=== PATIENT | male | born 1950 | race Caucasian/White ===

== ENCOUNTER 2017-01-22 23:43 | Inpatient (IN) | payer OTHER, BC ==
[~2017-01-22] VITALS: Ht 172.7 cm; Wt 98.2 kg
[~2017-01-22 23:43] MED LIST: NAPROSYN500 MG PO; NORCO 5/3251 TABLET PO; VALIUM2 MG PO
[2017-01-23 01:26] LABS: HEMATOCRIT 42.4 % (38.0-50.0); MCH 29.4 PG (29.0-34.0); MCHC 35.4 G/DL (30.0-36.0); MCV 83.1 FL (86-99); MEAN PLAT.VOLUME 10.5 uM^3 (9.0-12.4); PLATELET COUNT 211 K/uL (156-360); RBC DIS.WIDTH-CV 12.1 % (11.8-14.6); RBC DIS.WIDTH-SD 36.8 % (39-53); WHITE BLOOD COUNT 22.2 K/uL (4.1-10.2)
[2017-01-23 01:28] LABS: CHLORIDE 99 mEq/L (99-109); POTASSIUM 4.5 mEq/L (3.7-5.4); SODIUM 135 mEq/L (136-147)
[2017-01-23 01:30] LABS: GLUCOSE 251 mg/dL (70-99)
[2017-01-23 01:31] LABS: ANION GAP 13 MEQ/L (2-14)
[2017-01-23 01:34] LABS: GFR ESTIMATE (CALCULATED) > 59 mL/min/; UREA NITROGEN (BUN) 18 mg/dL (9-23)
[2017-01-23 01:40] LABS: TROP-I INTERPRETATION NEGATIVE; TROPONIN-I < 0.01 ng/mL (0.0-0.30)
[2017-01-23 02:18] LABS: ADD MIUA? YES; BILIRUBIN NEGATIVE; BLOOD NEGATIVE; COLOR YELLOW ((YELLOW)); GLUCOSE (STRIP) 150; KETONES 5; LEUKOCYTES LARGE; NITRITE NEGATIVE; PROTEIN (STRIP) 30; SPECIFIC GRAVITY 1.015 (1.000-1.030)
[2017-01-23 02:38] LABS: EPITHELIAL CELLS RARE /HPF; RED BLOOD CELLS RARE /HPF (0-5); WHITE BLOOD CELLS TNTC /HPF (0-5)
[2017-01-23 02:39] LABS: BACTERIA RARE /HPF; CASTS NONE SEEN /LPF; CRYSTALS NONE SEEN; MUCUS TRACE /LPF; UCUL ADDED? YES
[2017-01-23 02:40] LABS: TOTAL BILIRUBIN 2.2 mg/dL (0.0-1.0)
[2017-01-23 02:41] LABS: ALKALINE PHOSPHATASE 95 IU/L (3-129)
[2017-01-23 02:43] LABS: DIRECT BILIRUBIN 0.7 mg/dL (0.0-0.3)
[2017-01-23 02:44] LABS: LIPASE 24 U/L (1.0-51.0)
[2017-01-23 06:12] VITALS: BP 132/74
[2017-01-23 07:55] VITALS: BP 149/76
[2017-01-23] MEDS ORDERED: EXFORGE HCT 101 EAC2 PO (11:20)
[2017-01-23] MEDS ORDERED: METFORMIN HCL1000 MG PO (11:20)
[2017-01-23] MEDS ORDERED: LO-DOSE ASPIRIN81 M2 PO (11:20)
[2017-01-23] MEDS ORDERED: LEVEMIR100 UNIT/2 SC ×2 (11:21)
[2017-01-23] MEDS ORDERED: BYSTOLIC20 MG PO (11:21)
[2017-01-23] MEDS ORDERED: CRESTOR10 MG PO (11:21)
[2017-01-23 12:37] VITALS: BP 119/61
[2017-01-23 15:57] VITALS: BP 134/73
[2017-01-23 19:43] VITALS: BP 133/68
[2017-01-23 21:14] LABS: POINT-OF-CARE METER ID UU14174216
[2017-01-23 23:42] VITALS: BP 113/57
[2017-01-24 04:35] VITALS: BP 110/69
[2017-01-24 05:48] LABS: HEMATOCRIT 39.4 % (38.0-50.0); MCH 29.4 PG (29.0-34.0); MCHC 34.5 G/DL (30.0-36.0); MCV 85.1 FL (86-99); MEAN PLAT.VOLUME 10.3 uM^3 (9.0-12.4); PLATELET COUNT 175 K/uL (156-360); RBC DIS.WIDTH-CV 12.5 % (11.8-14.6); RBC DIS.WIDTH-SD 38.5 % (39-53); RED BLOOD COUNT 4.63 M/uL (4.00-5.50); WHITE BLOOD COUNT 24.8 K/uL (4.1-10.2)
[2017-01-24 06:12] LABS: ANION GAP 10 MEQ/L (2-14); CHLORIDE 98 MEQ/L (99-109); GFR ESTIMATE (CALCULATED) > 59 mL/min/; POTASSIUM 3.9 MEQ/L (3.7-5.4); SAMPLE HEMOLYSIS CHECK 0; SAMPLE ICTERIC CHECK 0; SAMPLE LIPEMIA CHECK 0; SODIUM 134 MEQ/L (136-147); UREA NITROGEN (BUN) 20 mg/dL (9-23)
[2017-01-24 06:26] LABS: GLUCOSE 119 mg/dL (70-99)
[2017-01-24 07:34] LABS: POINT-OF-CARE METER ID UU13113781
[2017-01-24 08:09] VITALS: BP 113/72
[2017-01-24 11:10] LABS: POINT-OF-CARE METER ID UU13113781
[2017-01-24 11:33] VITALS: BP 103/56
[2017-01-24 11:42] LABS: EOSINOPHIL (%) 0 % (0-5); HEMATOLOGY COMMENT 1 SMEAR COMPATIBLE; IMMATURE GRANULOCYTE (%) 1.1 % (0.0-0.7); IMMATURE GRANULOCYTE COUNT 0.3 K/uL; INSTRUMENT ABS NEUTROPHIL CT 21.5 K/uL; MONOCYTE (%) 8.1 % (3-12); NEUTROPHIL (%) 86.5 % (45-76); NEUTROPHIL COUNT 21.5 K/uL (1.8-6.4)
[2017-01-24 15:57] VITALS: BP 119/63
[2017-01-24 16:06] LABS: POINT-OF-CARE METER ID UU13113781
[2017-01-24 19:03] VITALS: BP 127/69
[2017-01-24 20:53] LABS: POINT-OF-CARE METER ID UU14174216
[2017-01-24 23:27] VITALS: BP 105/59
[2017-01-25 04:10] VITALS: BP 134/75
[2017-01-25 06:52] LABS: EOSINOPHIL (%) 0.1 % (0-5); HEMATOCRIT 37.8 % (38.0-50.0); IMMATURE GRANULOCYTE (%) 0.7 % (0.0-0.7); IMMATURE GRANULOCYTE COUNT 0.1 K/uL; INSTRUMENT ABS NEUTROPHIL CT 12.6 K/uL; LYMPHOCYTE COUNT 0.9 K/uL (1.0-2.8); MCH 29.2 PG (29.0-34.0); MCHC 34.4 G/DL (30.0-36.0); MCV 84.9 FL (86-99); MEAN PLAT.VOLUME 10.4 uM^3 (9.0-12.4); MONOCYTE (%) 7.9 % (3-12); MONOCYTE COUNT 1.2 K/uL (0-0.8); NEUTROPHIL COUNT 12.6 K/uL (1.8-6.4); PLATELET COUNT 179 K/uL (156-360); RBC DIS.WIDTH-CV 12.8 % (11.8-14.6); RBC DIS.WIDTH-SD 39.1 % (39-53); RED BLOOD COUNT 4.45 M/uL (4.00-5.50); WHITE BLOOD COUNT 14.8 K/uL (4.1-10.2)
[2017-01-25 07:19] LABS: ANION GAP 9 MEQ/L (2-14); CHLORIDE 101 MEQ/L (99-109); GFR ESTIMATE (CALCULATED) > 59 mL/min/; POTASSIUM 3.7 MEQ/L (3.7-5.4); SAMPLE HEMOLYSIS CHECK 0; SAMPLE ICTERIC CHECK 0; SAMPLE LIPEMIA CHECK 0; SODIUM 136 MEQ/L (136-147); UREA NITROGEN (BUN) 20 mg/dL (9-23)
[2017-01-25 07:22] LABS: GLUCOSE 83 mg/dL (70-99)
[2017-01-25 07:38] VITALS: BP 131/71
[2017-01-25] MEDS ORDERED: BACTRIM,SEPT1 TABLET PO (07:54)
[2017-01-25 08:09] LABS: POINT-OF-CARE METER ID UU13113698; POINT-OF-CARE USER ID NUTSLF44
== END 2017-01-25 11:17 | disposition home or self-care (01) | DRG 690 ==
LOC: EME 23:43 → 4EAST 01-23 05:09 → EDOF 01-23 05:09 → 4EAST 01-23 06:01
PROVIDERS: Emergency Medicine; Hospitalist; Pediatrics; Physician Assistant
DX: N39.0 Urinary tract infection, site not specified (principal); N20.0 Calculus of kidney; N40.0 Benign prostatic hyperplasia without lower urinary tract symptoms; N28.1 Cyst of kidney, acquired; E11.9 Type 2 diabetes mellitus without complications; I10 Essential (primary) hypertension; E78.5 Hyperlipidemia, unspecified; B96.1 Klebsiella pneumoniae [K. pneumoniae] as the cause of diseases classified elsewhere; Z68.32 Body mass index [BMI] 32.0-32.9, adult; Z87.442 Personal history of urinary calculi
CPT/HCPCS: 71020; 74000; 74176; 80048; 80069; 80076; 81003; 82948; 83605; 83690; 83880; 84484; 85025; 85027; 87040; 87077; 87086; 87186; 93005; 99281; 99285; J0696; J1650; J1815; J7050

== ENCOUNTER 2017-09-05 00:55 | Emergency (ER) | payer OTHER, BC ==
[~2017-09-05] VITALS: Ht 172.7 cm; Wt 99.2 kg
[~2017-09-05 00:55] MED LIST changes: +BACTRIM,SEPT1 TABLET PO; +BYSTOLIC20 MG PO; +CRESTOR10 MG PO; +EXFORGE HCT 101 EAC2 PO; +LEVEMIR100 UNIT/2 SC; +LO-DOSE ASPIRIN81 M2 PO; +METFORMIN HCL1000 MG PO
[2017-09-05] MEDS ORDERED: ULTRAM50 MG PO (03:00)
[2017-09-05 03:14] VITALS: BP 171/94
== END 2017-09-05 03:17 | disposition home or self-care (01) ==
LOC: EME 00:55
DX: S63.502A Unspecified sprain of left wrist, initial encounter (principal); S40.012A Contusion of left shoulder, initial encounter; W01.0XXA Fall on same level from slipping, tripping and stumbling without subsequent striking against object, initial encounter; Y93.53 Activity, golf; Y92.39 Other specified sports and athletic area as the place of occurrence of the external cause; E11.9 Type 2 diabetes mellitus without complications; E78.5 Hyperlipidemia, unspecified; I10 Essential (primary) hypertension; Z79.84 Long term (current) use of oral hypoglycemic drugs; Z79.82 Long term (current) use of aspirin; Z79.4 Long term (current) use of insulin
CPT/HCPCS: 73030; 73110; 99281; 99284